=== PATIENT | female | born 1970 | race Hispanic/Latino ===

== ENCOUNTER 2018-04-04 10:03 | Outpatient (CLI) | payer BC | END 2018-04-04 10:04 | disposition home or self-care (01) | LOC: RAD 10:03 | DX: R92.8 Other abnormal and inconclusive findings on diagnostic imaging of breast (principal) ==

== ENCOUNTER 2018-05-14 09:34 | Outpatient (CLI) | payer BC | END 2018-05-14 09:35 | disposition home or self-care (01) | LOC: RAD 09:34 ==